=== PATIENT | female | born 1950 | race Caucasian/White ===

== ENCOUNTER → 2016-12-24 | Outpatient (CLI) | payer MEDICARE, OTHER | LOC: MAMO 14:45 | DX: Z12.31 Encounter for screening mammogram for malignant neoplasm of breast (principal) ==

== ENCOUNTER → 2022-02-08 | Outpatient (CLI) | payer MEDICARE, OTHER ==
[~2022-02-08] MED LIST: ALLEGRA ALLERG180 MG PO; AMLODIPINE BESY10 MG PO; ASPIRIN EC81 MG PO; ECOTRIN81 MG PO; HYDRALAZINE HCL25 MG PO; HYDRALAZINE HCL50 MG PO; LOPRESSOR50 MG PO; METOPROLOL TART50 MG PO; NORVASC10 MG PO; RANITIDINE HCL150 MG PO; SIMVASTATIN20 MG PO; SYMBICORT 160-1 INHA INH; SYMBICORT INH; TRADJENTA5 MG PO; TRICOR145 MG PO; ZANTAC150 MG PO; ZOCOR20 MG PO; ZYRTEC10 MG PO
== END ==
LOC: RAD 12:15
DX: M79.672 Pain in left foot (principal); M19.072 Primary osteoarthritis, left ankle and foot
CPT/HCPCS: 73630